=== PATIENT | female | born 1995 | race Caucasian/White ===

== ENCOUNTER 2023-05-25 13:47 | Emergency (ER) | payer OTHER ==
[~2023-05-25] VITALS: Ht 157.5 cm; Wt 68.2 kg
[2023-05-25 13:59] VITALS: BP 124/79; PULSE 100; O2SAT 99
[2023-05-25 15:27] VITALS: RESP 18
[2023-05-25 17:20] VITALS: TEMP 99.5
== END 2023-05-25 17:36 | disposition home or self-care (01) ==
LOC: ER 13:48
DX: B34.9 Viral infection, unspecified (principal)
CPT/HCPCS: 99282